=== PATIENT | male | born 1980 | race African-American/Black ===

== ENCOUNTER 2025-04-12 04:16 | Emergency (ER) | payer MEDICAID ==
[2025-04-12 04:20] VITALS: PULSE 90; RESP 18; O2SAT 97
== END 2025-04-12 05:05 | disposition left against medical advice (07) ==
LOC: ER 04:16
DX: Z11.3 Encounter for screening for infections with a predominantly sexual mode of transmission (principal); Z53.21 Procedure and treatment not carried out due to patient leaving prior to being seen by health care provider